=== PATIENT | male | born 1990 | race Caucasian/White ===

== ENCOUNTER 2023-09-04 03:51 | Observation (INO) ==
[2023-09-04] MEDS: Morphine 4 MG/ML VIAL (1 ml) IV ONE ×2 (05:38→07:18)
[2023-09-04] MEDS: diazePAM INJ CARPUJECT 5 MG/ML SYRINGE IV ONE (06:27)
[2023-09-04] MEDS: Acetaminophen IV 1 GM/100ML 1,000 MG/100 ML BAG IV ONE (09:19)
[2023-09-04] MEDS: Lidocaine PATCH 5% PATCH TRANSDERM ONE (09:21)
[2023-09-04] MEDS: Morphine ER 15 mg TAB ** extended release PO ONE (10:20)
[2023-09-04] MEDS: oxyCODONE SR 10 mg TAB PO ONE ×2 (10:25→18:12)
[2023-09-04 14:00] LABS: ABS Basophils 0.1 10^3/uL (0.0-0.1); ABS Eosinophils 0.1 10^3/uL (0.0-0.5); ABS Monocytes 0.7 10^3/uL (0.0-1.1); ABS Neutrophils 6.9 10^3/uL (1.5-7.6); ABS Nucleated RBC 0.03 10^3/ul; Eosinophil % 0.6 %; Hematocrit 45.6 % (38-53); Hemoglobin 15.8 g/dL (13.2-16.3); Lymphocyte % 20.7 %; Mean Corpuscular Hgb Conc 34.7 g/dL (31-36); Mean Corpuscular Volume 83.6 fL (80-97); Mean Platelet Volume 9.1 fL (7.5-11.2); Nucleated Red Blood Cells % 0.3 %/100WBC (0.0-0.8); Platelet Count 280 10^3/uL (150-450); Red Blood Count 5.45 10^6/uL (4.06-5.63); Red Cell Distribution Width 13.2 % (12-17); White Blood Count 9.8 10^3/uL (3.6-10.2)
[2023-09-04 14:57] LABS: ALT 73 U/L (7-52); AST 28 U/L (13-39); Albumin 4.7 g/dL (3.2-5.2); Albumin/Globulin Ratio 1.9 (1-3); Alkaline Phosphatase 47 U/L (35-149); Anion Gap 10 mmol/L (2-16); Blood Urea Nitrogen 14 mg/dL (6-24); C Reactive Protein 6.15 mg/L (<8.01); CO2 Carbon Dioxide 24 mmol/L (22-32); Calcium 9.1 mg/dL (8.6-10.3); Chloride 97 mmol/L (101-111); Creatinine, Serum 0.79 mg/dL (0.67-1.17); Globulin 2.5 g/dL (2-4); Glucose 349 mg/dL (70-100); Potassium 3.9 mmol/L (3.5-5.0); Sodium 131 mmol/L (135-145); Total Bilirubin 1.5 mg/dL (0.2-1.0); Total Protein 7.2 g/dL (6.4-8.9); eGFR CKD-EPI 118.8 (>60)
[2023-09-04 16:30] LABS: Erythrocyte Sed Rate 12 mm/Hr (0-14)
[2023-09-04 16:54] LABS: Creatine Kinase 39 U/L (10-223); Magnesium 1.8 mg/dL (1.9-2.7)
[2023-09-04] MEDS: NS 0.9% 1000 ml BAG 1,000 ML IV ONE (17:00)
[2023-09-04] MEDS ORDERED: Ondansetron 4 mg VIAL 2 MG/ML 2 ml VIAL IV PRN (19:06)
[2023-09-04 20:32] LABS: Folate > 20.00 ng/mL (5.90-24.80)
[2023-09-04 20:34] LABS: Vitamin B12 501 pg/mL (180-914)
[2023-09-04] MEDS: Meloxicam 7.5 mg TAB (NF) PO ONE (22:53)
[2023-09-05] MEDS: HYDROmorphone 0.5 MG/0.5 ML SYRINGE IV SLOW PU ONE (03:03)
[2023-09-05 07:50] LABS: Albumin 4.6 g/dL (3.2-5.2); Albumin/Globulin Ratio 2.1 (1-3); Calcium 8.7 mg/dL (8.6-10.3); Creatinine, Serum 0.61 mg/dL (0.67-1.17); Globulin 2.2 g/dL (2-4); Total Bilirubin 1.7 mg/dL (0.2-1.0); Total Protein 6.8 g/dL (6.4-8.9); eGFR CKD-EPI 128.5 (>60)
[2023-09-05] MEDS: Lidocaine PATCH 4% TOPICAL PRN (08:20)
[2023-09-05 09:58] VITALS: BP 158/97
[2023-09-05 16:08] LABS: HIV 4th Generation Nonreactive (Nonreactive)
[2023-09-07 22:08] LABS: Anaplasma phagocytophilum Negative (Negative); B. miyamotoi PCR, B Negative (Negative); Babesia divergens/MO-1 Negative (Negative); Babesia ducani Negative (Negative); Ehrlichia chaffeensis Negative (Negative); Ehrlichia ewingii/canis Negative (Negative); Ehrlichia muris eauclairensis Negative (Negative)
[2023-09-09 22:22] LABS: IgG Immunoblot Negative (Negative); IgM Immunoblot Positive (Negative)
== END 2023-09-05 14:50 | disposition home or self-care (01) ==
LOC: EDHOLD 03:51 → ED 03:51 → MED 21:28
PROVIDERS: ADMIT Internal Medicine; ATTEND Internal Medicine